=== PATIENT | male | born 1950 | race Caucasian/White ===

== ENCOUNTER → 2021-01-08 | Day surgery (SDC) | payer MEDICARE ==
[~2021-01-08] MED LIST: ALDACTONE25 M1 PO; AMARYL4 MG PO; AMIODARONE HCL200 MG PO; ASPIRIN EC81 MG PO; COREG 6.25MG6.25 MG PO; CRESTOR40 MG PO; ENTRESTO 97 MG1 EACH PO; FENOFIBRATE160 MG PO; JARDIANCE25 MG PO; LASIX40 MG PO; METFORMIN HCL500 MG PO; PERCOCET 5-3251 EACH PO; PLAVIX75 MG PO; PRILOSEC20 MG PO
[2021-01-08 08:58] LABS: HCT 37.9 % (42.0-52.0); HGB 12.7 g/dl (13.2-18.0); MCH 30.2 pg (25.0-31.0); MCHC 33.5 g/dL (32.0-36.0); MPV 9.9 fL (6.0-9.5); RBC 4.21 M/uL (4.70-6.00); RDW 15.5 % (11.5-14.0); WBC 11.5 K/uL (4.0-10.5)
[2021-01-08 10:07] LABS: BUN/CREAT RATIO (CALC) 20.4 RATIO; CREATININE 0.93 mg/dL (0.67-1.17); POTASSIUM 4.6 mmol/L (3.5-5.1)
== END | disposition home or self-care (01) ==
LOC: FAS 07:37
PROVIDERS: Anesthesiology; Legal Medicine
DX: M70.22 Olecranon bursitis, left elbow (principal); M25.722 Osteophyte, left elbow; I10 Essential (primary) hypertension; E11.9 Type 2 diabetes mellitus without complications; K21.9 Gastro-esophageal reflux disease without esophagitis; Z20.822 Contact with and (suspected) exposure to COVID-19; Z90.49 Acquired absence of other specified parts of digestive tract; Z98.890 Other specified postprocedural states; Z79.84 Long term (current) use of oral hypoglycemic drugs; Z79.899 Other long term (current) drug therapy; Z88.5 Allergy status to narcotic agent; Z87.891 Personal history of nicotine dependence; Z95.0 Presence of cardiac pacemaker
CPT/HCPCS: 36415; 80048; 82962; J0690; J2250; J2405; J2704; J2795; J3010; J7120